=== PATIENT | female | born 1965 | race Caucasian/White ===

== ENCOUNTER 2023-06-16 04:25 | Outpatient (CLI) | payer OTHER, SELFPAY ==
[2023-06-16 07:19] LABS: Abs Immature Grans 0.02 10^3/uL (0.0-0.06); Absolute Basophil Count 0.06 10^3/uL (0.0-0.2); Absolute Eosinophil Count 0.29 10^3/uL (0.0-0.7); Absolute Lymphocyte Count 2.32 10^3/uL (1.2-3.4); Absolute Monocyte Count 0.56 10^3/uL (0.1-0.8); Basophils % 0.9; Eosinophils % 4.2; HGB 14.8 g/dL (11.2-15.7); Immature Grans % 0.3; Lymphocytes % 33.4; MCH 30.5 pg (27.0-33.0); MCHC 33.6 % (32.0-36.0); MCV 91 fL (80-95); MPV 8.5 fL (8.0-11.0); Monocytes % 8.1; Neutrophils % 53.1; Platelet Count 324 10^3/uL (130-400); RBC 4.86 10^6/uL (3.93-5.22); RDW 11.8 % (11.7-14.6); RDW-SD 39.2 fL; WBC 6.95 10^3/uL (4.4-10.8)
[2023-06-16 08:09] LABS: ALT 23 U/L (14-59); AST 17 U/L (15-37); Albumin 4.1 g/dL (3.4-5.0); Alkaline Phosphatase 76 U/L (46-116); Anion Gap 9.9 mmol/L (3-11); BUN 20 mg/dL (7-18); Bilirubin, Total 0.6 mg/dL (0.2-1.0); CO2 29.1 mmol/L (21.0-32.0); CREATININE 0.7 mg/dL (0.55-1.02); Calcium 8.9 mg/dL (8.5-10.1); Chloride 104 mmol/L (98-107); Estimated GFR 102.07 (mL/min/1.73m2); Glucose 102 mg/dL (74-106); Potassium 4.2 mmol/L (3.5-5.1); Sodium 143 mmol/L (136-145); TSH (W/Ref FT4) 1.85 uIU/mL (0.36-3.74); Total Protein 7.9 g/dL (6.4-8.2)
[2023-06-16 15:59] LABS: Vitamin D 25 Total 63.5 ng/mL (30-100)
[2023-06-16 16:10] LABS: Calculated LDL 140 mg/dL (<100); Cholesterol 209 mg/dL (<200); Ferritin 205 ng/mL (8-252); HDL Cholesterol 59 mg/dL (40-60); Triglyceride 53 mg/dL (<150); Vitamin B12 298 pg/mL (193-986)
[2023-06-17 10:52] LABS: Hepatitis C Ab w Rflx HCV PCR Negative (Negative)
[2023-06-17 11:18] LABS: HIV-1/2 Ag & Ab Screen Negative (Negative)
== END 2023-06-16 04:26 | disposition home or self-care (01) ==
LOC: LBO 04:25
PROVIDERS: PCP Nurse Practitioner; Referring Provider Nurse Practitioner; Visit Provider Nurse Practitioner
DX: R53.83 Other fatigue (principal); E78.5 Hyperlipidemia, unspecified; Z11.59 Encounter for screening for other viral diseases
CPT/HCPCS: 36415; 80053; 80061; 82306; 86803; 87389; 82607; 82728; 84443; 85025

== ENCOUNTER 2023-06-24 16:30 | Outpatient (REF) | payer OTHER, SELFPAY | END 2023-06-24 16:31 | disposition home or self-care (01) | LOC: LBN 16:30 | PROVIDERS: PCP Nurse Practitioner; Visit Provider Family Medicine | DX: R35.0 Frequency of micturition (principal); R82.89 Other abnormal findings on cytological and histological examination of urine | CPT/HCPCS: 87086 ==

== ENCOUNTER 2023-07-28 18:28 | Outpatient (REF) | payer OTHER, SELFPAY ==
--- NOTE | 2023-07-28 18:15 | PAPFT_PTH ---
PATIENT: Lilo Neal LOC: [facility] U#:[id number] AGE/SX: 57/F ROOM: RE07/28/[address]: Victoria Jackson APRN : 1965 BED: DIS: 07/28/2023 SPEC #: [id number] RECD: 07/29/23 13:00 STATUS: IBIS JAIME #: [id number] SIRI: 07/28/23 18:[address]: Victoria Jackson DEPT: [facility] Cytology RECD BY: Dary De Jesus Tissues: 1 - CX/ENDOCX FOR PAP SMEARS Procedures: PAP THIN PREP/UVM Screening HPV DNA PROBE Comments: [id number]
== END 2023-07-28 18:29 | disposition home or self-care (01) ==
LOC: LBN 18:28
PROVIDERS: PCP Nurse Practitioner; Visit Provider Nurse Practitioner
DX: Z00.00 Encounter for general adult medical examination without abnormal findings (principal); Z01.419 Encounter for gynecological examination (general) (routine) without abnormal findings; B96.89 Other specified bacterial agents as the cause of diseases classified elsewhere
CPT/HCPCS: 88142; 87624

== ENCOUNTER → 2023-08-23 02:07 | Outpatient (CLI) | payer OTHER, SELFPAY ==
--- NOTE | 2023-08-23 06:15 | DI.MAMMO_ITS ---
Exam(s) MAMMO SCREENING EXAM: MAMMO SCREENING CLINICAL HISTORY: screening,z12.39 TECHNIQUE: Bilateral full field digital CC and MLO mammographic images were obtained with 3D tomosyn thesis and utilizing computer aided detection (CAD). COMPARISON: Available for comparison. FINDINGS: Masses/Architectural Distortion: There is a new asymmetric density in the medial left breast on the c raniocaudad view. This may represent overlying fibroglandular tissue, but a spot compression views r equested for further evaluation. Microcalcifications: No suspicious pleomorphic-type are seen. Skin Thickening/Nipple Retraction: None. IMPRESSION: 1. Asymmetric density in the posterior medial left breast on the craniocaudad view. 2. Spot compression views requested for further evaluation. Limited left breast ultrasound may be in dicated at that time. BI-RADS Category 0 - Assessment Incomplete: Need additional imaging evaluation Breast Density - Category C - Heterogeneously dense Breast density category C or D implies that the patient has dense breast tissue. Dense breast tissue is very common and is not abnormal but dense breast tissue can make it harder to find cancer on a ma mmogram. Also, dense breast tissue may increase their breast cancer risk. This information about the result of the mammogram report was provided to the patient to raise their awareness. Use this report when you speak with the patient about their risks for breast cancer, which includes their family hist ory. At that time, you may recommend for more screening tests (Ultrasound or MRI) as they might be us eful based on their risk. A negative radiographic report should not delay biopsy if a dominant or clinically suspicious mass is present. Up to ten percent of cancers are not identified on mammography. A negative report may reinforce clinical impression. Adenosis and dense breasts may obscure an underlying neoplasm. False positive reports average 6 to 10%. Patient will receive a letter notifying them of these results.
== END ==
PROVIDERS: PCP Nurse Practitioner; Visit Provider Nurse Practitioner
DX: Z12.31 Encounter for screening mammogram for malignant neoplasm of breast (principal)
CPT/HCPCS: 77063; 77067

== ENCOUNTER → 2023-08-26 00:56 | Outpatient (CLI) | payer OTHER, SELFPAY ==
--- NOTE | 2023-08-26 10:33 | DI.MAMMO_ITS ---
Exam(s) MG MAMMO SCREEN CALL BACK UNI US BREAST LT LIMITED EXAM: MG MAMMO SCREEN CALL BACK UNI and U/S breast LT limited CLINICAL HISTORY: F/U MAMMO, R92.8,ASYMMETRIC DENSITY LT BREAST,. TECHNIQUE: Craniocaudal and mediolateral oblique Full Field Digital Mammography views of the left br east with Computer Aided Diagnosis followed by Tomosynthesis and left breast ultrasound. COMPARISON: Comparison is made with prior examinations. FINDINGS: Mammography/Tomosynthesis: Masses/Architectural Distortion: The nodular dense persists faintly on the additional views. Microcalcifictions: No suspicious pleomorphic-type are seen. Skin Thickening/Nipple Retraction: None. Limited left breast US: Echotexture: Normal appearance of the glandular tissue. Shadowing: No suspicious foci. Cyst: At the 6 to 7 o'clock position of the left breast, there is a 0.2 x 0.6 cm cyst present. This would appear to correspond to the mammographic abnormality. Solid lesions: None seen. Ductal dilation: None. IMPRESSION: 1. No evidence of malignancy is noted. 2. Unless there is more urgent need, follow-up screening mammography is recommended, as per [employer] guidelines. 3. The findings were discussed with the patient on the date of the examination. BI-RADS Category 2 - Benign Findings Breast Density - Category C - Heterogeneously dense Breast density Category C or D implies that the patient has dense breast tissue. Dense breast tissue can make it harder to find cancer on a mammogram. Dense breast tissue is also associated with an incr eased risk of breast cancer. This information about the result of the mammogram report was provided to the patient to raise their awareness. Use this report when you speak with the patient about their risks for breast cancer, which includes their family history. At that time, you may recommend additional screening tests (Ultrasoun d or MRI) as these tests may add significant information. A negative radiographic report should not delay biopsy if a dominant or clinically suspicious mass is present. Up to ten percent of cancers are not identified on mammography. A negative report may reinforce clinical impression. Adenosis and dense breasts may obscure an underlying neoplasm. False positive reports average 6 to 10%. Patient will receive a letter notifying them of these results.
== END ==
PROVIDERS: PCP Nurse Practitioner; Visit Provider Nurse Practitioner
DX: R92.8 Other abnormal and inconclusive findings on diagnostic imaging of breast (principal)
CPT/HCPCS: 76642; 77063; 77067

== ENCOUNTER 2023-08-30 09:29 | Outpatient (REF) | payer OTHER, SELFPAY ==
--- NOTE | 2023-08-30 08:40 | CER_PTH ---
PATIENT: Lilo Neal LOC: [facility] U#:[id number] AGE/SX: 58/F ROOM: RE08/30/[address]: Sharon Armstrong MD : 1965 BED: DIS: 08/30/2023 SPEC #: [id number] RECD: 08/30/23 12:56 STATUS: IBIS REUlisses #: [id number] SIRI: 08/30/23 08:[address]: Sharon Armstrong DEPT: Surgical Specimen RECD BY: Dary De Jesus ENTERED: 08/30/23 12:56 SP TYPE: CER OTHR DR: Victoria Jackson APRN Tissues: 1 - CERVICAL BIOPSY Procedures: GROSS AND MICRO LEVEL 4 Comments: [id number]
== END 2023-08-30 09:30 | disposition home or self-care (01) ==
LOC: LBN 09:29
PROVIDERS: PCP Nurse Practitioner; Visit Provider Obstetrics & Gynecology
DX: N84.1 Polyp of cervix uteri (principal)
CPT/HCPCS: 88305

== ENCOUNTER 2023-10-11 02:45 | Outpatient (CLI) | payer OTHER, SELFPAY ==
--- NOTE | 2023-10-11 13:37 | DI.RAD_ITS ---
Exam(s) XR FOOT LT COMPLETE EXAM: XR FOOT LT COMPLETE CLINICAL HISTORY: left foot/heel pain,M79.672. TECHNIQUE: 2D digital imaging was performed of the left foot. Three images were obtained. AP, obli que and lateral views were obtained. COMPARISON: No exams were available for comparison FINDINGS: BONES: No acute fracture is present. No bony destructive lesion is seen. There is a small plantar miriam caneal spur. There is a small enthesophyte at the posterior calcaneus. JOINTS: No dislocation present. SOFT TISSUE: Normal. IMPRESSION: Calcaneal spurs. If there is concern for internal derangement, an MRI should be considered for furth er evaluation. DATA REPOSITORY: RADIATION DOSE DELIVERED:
== END 2023-10-11 03:05 ==
LOC: DI 02:45
PROVIDERS: PCP Nurse Practitioner; Visit Provider Podiatrist
DX: M79.672 Pain in left foot (principal); M77.32 Calcaneal spur, left foot
CPT/HCPCS: 73630

== ENCOUNTER 2024-10-02 01:30 | Outpatient (CLI) | payer OTHER, SELFPAY ==
--- NOTE | 2024-10-02 07:17 | DI.MAMMO_ITS ---
Exam(s) MAMMO SCREENING EXAM: MAMMO SCREENING CLINICAL HISTORY: screening,z12.39 TECHNIQUE: Bilateral full field digital CC and MLO mammographic images were obtained with 3D tomosynthesis and utilizing computer aided detection (CAD). COMPARISON: Comparison is made with prior examinations. FINDINGS: Masses/Architectural Distortion: No suspicious masses or areas of architectural distortion are present. Microcalcifications: No suspicious pleomorphic-type are seen. Skin Thickening/Nipple Retraction: None. IMPRESSION: 1. No significant interval change with no specific features of malignancy noted. 2. Unless there is more urgent need, screening mammography is recommended, as per [place] [employer] guidelines. BI-RADS Category 1 - Negative Breast Density - Category C - The breast are heterogeneously dense, which may obscure small masses. Breast density Category C or D implies that the patient has dense breast tissue. Dense breast tissue can make it harder to find cancer on a mammogram. Dense breast tissue is also associated with an increased risk of breast cancer. This information about the result of the mammogram report was provided to the patient to raise their awareness. Use this report when you speak with the patient about their risks for breast cancer, which includes their family history. At that time, you may recommend additional screening tests (Ultrasound or MRI) as these tests may add significant information. A negative radiographic report should not delay biopsy if a dominant or clinically suspicious mass is present. Up to ten percent of cancers are not identified on mammography. A negative report may reinforce clinical impression. Adenosis and dense breasts may obscure an underlying neoplasm. False positive reports average 6 to 10%. Patient will receive a letter notifying them of these results.
== END 2024-10-02 01:50 ==
PROVIDERS: PCP Family Medicine; Visit Provider Family Medicine
DX: Z12.31 Encounter for screening mammogram for malignant neoplasm of breast (principal); R92.333 Mammographic heterogeneous density, bilateral breasts
CPT/HCPCS: 77063; 77067

== ENCOUNTER 2024-10-09 04:31 | Outpatient (CLI) | payer OTHER, SELFPAY ==
[2024-10-09 09:24] LABS: Abs Immature Grans 0.02 10^3/uL (0.0-0.06); HCT 43.7 % (36.0-46.0); HGB 14.9 g/dL (11.2-15.7); Immature Grans % 0.3 %; MCH 30.4 pg (27.0-33.0); MCHC 34.1 % (32.0-36.0); MCV 89 fL (80-95); MPV 8.5 fL (8.0-11.0); Platelet Count 303 10^3/uL (130-400); RBC 4.90 10^6/uL (3.93-5.22); RDW 11.9 % (11.7-14.6); RDW-SD 38.9 fL; WBC 6.53 10^3/uL (4.4-10.8)
[2024-10-09 09:57] LABS: Hemoglobin A1C 5.4 % (<5.7)
[2024-10-09 10:04] LABS: ALT 24 U/L (14-59); AST 17 U/L (15-37); Albumin 4.1 g/dL (3.4-5.0); Alkaline Phosphatase 69 U/L (46-116); Anion Gap 8.0 mmol/L (3-11); BUN 16 mg/dL (7-18); Bilirubin, Total 0.4 mg/dL (0.2-1.0); CO2 27.0 mmol/L (21.0-32.0); Calcium 9.2 mg/dL (8.5-10.1); Chloride 105 mmol/L (98-107); Estimated GFR 100.81 (mL/min/1.73m2); Glucose 100 mg/dL (74-106); Potassium 4.0 mmol/L (3.5-5.1); Sodium 140 mmol/L (136-145); TSH 1.42 uIU/mL (0.36-3.74); Total Protein 7.9 g/dL (6.4-8.2)
[2024-10-09 14:16] LABS: Glucose Negative (Negative)
== END 2024-10-09 04:32 | disposition home or self-care (01) ==
LOC: LBO 04:31
PROVIDERS: PCP Nurse Practitioner; Visit Provider Family Medicine
DX: R53.83 Other fatigue (principal); Z13.9 Encounter for screening, unspecified
CPT/HCPCS: 36415; 80053; 81003; 83036; 84443; 85025